=== PATIENT | female | born 1965 | race Caucasian/White ===

== ENCOUNTER → 2019-03-05 13:22 | Outpatient (BNVA) | payer SELFPAY | PROVIDERS: PCP Family Medicine; Visit Provider Nurse Practitioner Family | DX: J40 Bronchitis, not specified as acute or chronic (principal); J01.90 Acute sinusitis, unspecified | CPT/HCPCS: 87804 ==

== ENCOUNTER 2019-08-28 | Outpatient (CLI) | payer SELFPAY | END 2019-08-28 23:00 | disposition home or self-care (01) | LOC: RAD 10-15 08:47 | PROVIDERS: PCP Family Medicine; Visit Provider Nurse Practitioner Family | DX: R10.9 Unspecified abdominal pain (principal) | CPT/HCPCS: 80053; 81000; 81003; 85025 ==

== ENCOUNTER → 2019-08-28 08:57 | Outpatient (BNVA) | payer SELFPAY | PROVIDERS: PCP Family Medicine; Visit Provider Nurse Practitioner Family | DX: R10.9 Unspecified abdominal pain (principal) | CPT/HCPCS: 74018 ==

== ENCOUNTER 2019-08-28 12:17 | Observation (INO) | payer SELFPAY ==
[2019-08-28 12:22] VITALS: BMI 23.6
[2019-08-28 12:25] VITALS: BP 113/66; PULSE 91; RESP 16; TEMP 37.2; O2SAT 96
--- NOTE | 2019-08-28 12:47 | CT_ITS ---
WS: [id number] CT ABDOMEN AND PELVIS WITH CONTRAST HISTORY: RIGHT lower quadrant abdominal pain for 2 days. TECHNIQUE: Imaging performed of the abdomen and pelvis with IV contrast. Single phase imaging of the abdomen. Coronal and sagittal reformats are submitted. All CT scans at [facility] use at least one of these dose optimization techniques: automated exposure control; mA and/or kV adjustment per patient size (includes targeted exams where dose is matched to clinical indication); or iterativ e reconstruction. IV CONTRAST: Omnipaque 300; 95 mL IV. Oral contrast: No DLP: 507.79 mGy.cm COMPARISON: None available. Lower thorax: Lung bases are clear. Heart is normal size. No hiatal hernia. Liver/biliary system: Normal size liver with hepatic steatosis along the falciform ligament. There ar e a few scattered hypodensities in the RIGHT lobe which are too small to characterize. Gallbladder: Normal. No gallstones or wall thickening. No pericholecystic fluid. Pancreas: Normal. Spleen: Normal. Adrenal glands: Normal. Right kidney: Normal size kidney. Hypodense area in the posterior mid renal cortex. 2 small to charac terize but may be a small early cyst. Left kidney: Normal. Aorta: Mild atherosclerosis with no aneurysm. Lymphadenopathy: None. Free fluid: None. GI tract: Significant inflammatory process in the pelvis surrounding the sigmoid and the small bowel loops within the pelvis. There is fat infiltration with edema and haziness. The appendix is visualize d and normal caliber 5 mm. There is some very mild haziness around the appendix which may be continua tion of the acute inflammatory process in the sigmoid. There are just a few diverticula in the sigmoi d. There is marked mucosal edema with narrowing of the lumen through a large portion of the sigmoid. No obstruction at this time. Abdominal wall: Unremarkable abdominal wall. No hernia. Pelvis: Fatty infiltration surrounding the sigmoid. Nondistended urinary bladder. Uterus is present a nd small caliber. Bones: Unremarkable. CT/CT abdomen pelvis w con* [id number] IMPRESSION: 1. Significant acute inflammatory/process surrounding the sigmoid with mucosal thickening and luminal narrowing. Probably related to long segment diverticuli tis or colitis. There are a few diverticula present but the inflammatory proces s which involves the sigmoid has also extended to the adjacent small bowel loop s. 2. No free air or free fluid. 3. Focal areas of hepatic steatosis within the liver.
[2019-08-28 13:09] LABS: Basophils % 0.1 %; Eosinophils % 0.2 %; Hematocrit 41.6 % (37.0-47.0); Hemoglobin 13.6 g/dL (11.5-15.3); Lymphocytes # 1.7 10^3/uL (0.8-4.8); Lymphocytes % 11.7 %; Mean Corpuscular HGB Conc 32.7 g/dL (30.0-36.0); Mean Corpuscular Hemoglobin 34.4 pg (28.0-34.0); Mean Corpuscular Volume 105.3 fL (81-99); Mean Platelet Volume 9.8 fL (7.4-10.4); Monocytes # 0.7 10^3/uL (0.2-0.9); Monocytes % 4.9 %; Neutrophils # 11.8 10^3/uL (1.8-7.7); Neutrophils % 82.8 %; Nucleated Red Blood Cells % 0 %; Platelet Count 190 10^3/cmm (130-400); Red Blood Count 3.95 10^6/uL (4.1-5.3); Red Cell Distribution Width 13.4 % (12.1-15.1); White Blood Count 14.2 10^3/uL (4.0-10.0)
--- NOTE | 2019-08-28 13:13 | W.ED.GENADLT ---
HPI - General Adult General: Chief complaint: General Medical Stated complaint: abnormal labs Time Seen by Provider: 08/28/19 12:38 History of Present Illness: HPI narrative: 83-year-old female comes in complaining of suprapubic pain for the last couple of days been getting progressively worse she was seen in their clinic today and given Toradol she had some hematuria and elevated white count evidently. She is noticed that his abdomen is very tender w any movement makes her very uncomfortable is better if she sits very very still she is not had any blood in the stool she has noticed increased dysuria urgency and frequency she is not noticed any flank pain. She denies any respiratory pain. Onset (ago): day(s) (2) Location: abdomen Radiation: back Severity: severe Quality: aching and sharp Pain Consistency: constant Relieving factors: rest Exacerbating factors: movement Associated symptoms: Reports decreased appetite, nausea and vomiting; Deny chest pain, dyspnea, malaise or rash Treatments prior to arrival: other (Toradol at their clinic) Review of Systems Const: Denies: fever(s), chills, body aches, change in appetite, fatigue or malaise ENMT: Denies: throat pain, ear or mastoid pain, nasal discharge or nasal congestion Card: Denies: chest pain, edema, dyspnea on exertion or orthopnea Resp: Denies: dyspnea, productive cough or non-productive cough GI: Reports: nausea and vomiting : Denies: flank pain, difficulty voiding, dysuria, urinary frequency or urinary urgency Skin/Breast: Denies: rash or pruritus PFS ED PFSH: Medical History Endometriosis, unspecified History of hysteroscopy Mixed hyperlipidemia Nicotine dependence, unspecified, uncomplicated Surgical History No pertinent past surgical history Family History Family/Other CAD (coronary artery disease) Social History Smoking and tobacco status: current every day smoker cigarettes Packs smoked per day: 1 Years cigarettes smoked: 40 Alcohol intake: current Alcohol intake frequency: few times a week Lives independently: Yes Household members: spouse Housing: House Marital status: Current occupational status: employed Current occupation: technical documentation specialist History of recent travel: No Current gender identity: Female Physical Exam Const: COMMON NORMALS: no acute distress GENERAL APPEARANCE: cooperative and comfortable ORIENTATION/CONSCIOUSNESS: Yes awake, Yes oriented to person, Yes oriented to place and Yes oriented to time HENMT: COMMON NORMALS: normocephalic, atraumatic, hearing grossly normal bilaterally, external ears normal, EAC's normal, TM's normal bilaterally, Normal nasal mucous membranes and turbinates present, moist oral mucous membranes and oropharynx normal HEAD & SCALP: normocephalic and atraumatic NOSE: Normal nasal mucous membranes and turbinates present EXTERNAL EAR: Yes external ears normal EXTERNAL AUDITORY CANAL: EAC's normal TYMPANIC MEMBRANE: TM's normal bilaterally Eye: COMMON NORMALS: Equal, round and reactive pupils present, EOMs intact bilaterally, conjunctivae normal and no scleral icterus CONJUNCTIVA: Yes conjunctivae normal PUPIL: Yes Equal, round and reactive pupils present Neck/C-Spine: COMMON NORMALS: full ROM, no lymphadenopathy, supple and no JVD Lymph: LYMPHATIC: no lymphadenopathy noted and no lymphedema noted Resp: COMMON NORMALS: normal respiratory effort, No retractions, No use of accessory muscles and clear to auscultation bilaterally AUSCULTATION: clear to auscultation bilaterally Cardio: COMMON NORMALS: no JVD, regular rate, regular rhythm and No murmurs present (Cardio) RATE: regular rate RHYTHM: regular rhythm GI: COMMON NORMALS: No hepatosplenomegaly present AUSCULTATION: Yes normoactive bowel sounds PALPATION: Yes Guarding due to palpation present (GI) in the RLQ, Yes Rigid due to palpation (Rebound tenderness severe pain with percussion) Location: RLQ and Yes No hepatosplenomegaly present Extremity: COMMON NORMALS: normal to inspection, capillary refill normal, no clubbing, cyanosis or edema, no calf tenderness and no pedal edema Neuro: SENSORIUM/ORIENTATION: Yes oriented to person, Yes oriented to place and Yes oriented to time Skin: COMMON NORMALS: no rashes or lesions noted GENERAL SKIN EXAM: no rashes or lesions noted Course Vital Signs: Vital signs: Vital Signs Temperature 98.7 F 08/29/19 06:15 Pulse Rate 74 08/29/19 06:15 Respiratory Rate 18 08/29/19 06:15 Blood Pressure 130/84 08/29/19 06:15 Pulse Oximetry 99 08/29/19 06:15 MDM - General Adult MDM Narrative: Medical decision making narrative: CT shows extensive diverticulitis extending into the some of the adjacent loops of small bowel there is even a little bit of signs of irritation around the appendix. Interestingly her initial exam pointed more towards appendicitis however on repeat exam her right lower quadrant pain is improved she still has relatively minimal left lower quadrant pain discussed with radiologist. CT findings are very convincing. We will go ahead and admit her start her on Cipro and Flagyl have discussed with hospitalist of also consulted with Dr. Alarcon. At this point it is simply a diverticulitis needing to be treated with IV antibiotics she will need colonoscopy at some point in future Dr. Burnett stated he is available if any surgical issues arrive. Lab Data: Labs: Lab Results 08/28/19 08/28/19 08/28/19 Range/Units 13:00 13:00 13:00 WBC 14.2 H (4.0-10.0) 10^3/ uL RBC 3.95 L (4.1-5.3) 10^6/u L Hgb 13.6 (11.5-15.3) g/dL Hct 41.6 (37.0-47.0) % MCV 105.3 H (81-99) fL MCH 34.4 H (28.0-34.0) pg MCHC 32.7 (30.0-36.0) g/dL RDW 13.4 (12.1-15.1) % Plt Count 190 (130-400) 10^3/c mm MPV 9.8 (7.4-10.4) fL Neut % (Auto) 82.8 % Lymph % (Auto) 11.7 % [place] % (Auto) 4.9 % Eos % (Auto) 0.2 % Baso % (Auto) 0.1 % Neut # (Auto) 11.8 H (1.8-7.7) 10^3/u L Lymph # (Auto) 1.7 (0.8-4.8) 10^3/u L [place] # (Auto) 0.7 (0.2-0.9) 10^3/u L Eos # (Auto) 0.0 (0.0-0.8) 10^3/u L Baso # (Auto) 0.0 (0.0-0.1) 10^3/u L Nucleated RBC % (a uto) 0 % Nucleated RBCs # 0.0 /100WBC Sodium 137 (136-145) mmol/L Potassium 3.8 (3.5-5.1) mmol/L Chloride 101 (98-107) mmol/L Carbon Dioxide 24 (22-29) mmol/L Anion Gap 15.8 (5-19) BUN 13 (6-20) mg/dL Creatinine 0.8 (0.5-0.9) mg/dL GFR Calculation 75.3 L (90-130) mL/min Glucose 121 H (65-115) mg/dL Calculated Osmolal ity 281 L (285-295) mOsm/k g Lactate 1.0 (0.5-2.2) mmol/L Calcium 9.4 (8.5-10.5) mg/dL Total Bilirubin 0.7 (0.15-1.2) mg/dL AST 29 (0-32) U/L ALT 29 (0-33) U/L Alkaline Phosphata se 71 (35-105) IU/L Total Protein 7.5 (6.6-8.7) g/dL Albumin 4.3 (3.5-5.2) g/dL Globulin 3.2 (1.3-4.6) g/dL Lipase 27 (13-60) U/L Discharge Plan Discharge Patient Disposition: Admitted As Inpatient Admit Provider: Dilshad Colindres Referrals: Melisa Desai MD [Primary Care Provider] - Discharge Date/Time: 08/28/19 18:20 Coding Level of Care Code 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
[2019-08-28 13:25] LABS: Alanine Aminotransferase 29 U/L (0-33); Albumin Level 4.3 g/dL (3.5-5.2); Alkaline Phosphatase 71 IU/L (35-105); Anion Gap 15.8 (5-19); Aspartate Amino Transferase 29 U/L (0-32); Blood Urea Nitrogen 13 mg/dL (6-20); Calcium 9.4 mg/dL (8.5-10.5); Carbon Dioxide 24 mmol/L (22-29); Chloride 101 mmol/L (98-107); Globulin 3.2 g/dL (1.3-4.6); Glomerular Filtration Rate 75.3 mL/min (90-130); Glucose 121 mg/dL (65-115); Lipase 27 U/L (13-60); Osmolality Calculated 281 mOsm/kg (285-295); Potassium 3.8 mmol/L (3.5-5.1); Sodium 137 mmol/L (136-145); Total Bilirubin 0.7 mg/dL (0.15-1.2); Total Protein 7.5 g/dL (6.6-8.7)
[2019-08-28 13:36] VITALS: RESP 15; O2SAT 98
[2019-08-28] MEDS: morphine 4 mg/mL SDV 1 mL IVP (13:36)
[2019-08-28] MEDS: sodium chloride 0.9% 1,000 ML 999 ML IV (13:36)
[2019-08-28] MEDS: ondansetron 2 mg/ML SDV 2 mL 4 MG IVP (13:37)
[2019-08-28] MEDS: ciprofloxacin 400 MG/200 ML PREMIX 200 MG IV (14:25)
--- NOTE | 2019-08-28 16:09 | PM.HP ---
Providers/Chief Complaint Primary Care Provider: Melisa Desai MD Chief Complaint: abnormal labs History of Present Illness Yoselyn Jha is a 53 year old female with a past medical history of hyperlipidemia, chronic smoker who presents to [facility] due to complaints of abdominal pain. Patient states that about a month ago she had an episode of abdominal pain throughout her lower abdomen, she thought she might of pulled a muscle working the garden, thought nothing much of it, pain upside in the next few days. But roughly a few days ago, she developed again a severe onset of lower abdominal pain, this time she stated that it was both in the right and left lower quadrant and just a below the umbilicus, but a bit more on the right side. No diarrhea, no bloody or black stools, no fevers, no chills, no sick contacts, no history of food poisoning, no weight loss, no fatigue. Denies nausea. Denies vomiting. Last bowel movement was this morning. Patient states that the pain was sharp, intermittent, and again she thought nothing much of it. However the pain persisted throughout the weekend, becoming much more severe and more persistent so she sought medical attention her primary care physician's office. She had blood work done that showed leukocytosis, and with concerns of right lower quadrant pain she was sent to the ER for a CT scan. Patient CT scan showed no significant inflammation of the appendix, significant diverticulitis. Dr. Nj from the ER did speak to Dr. Burnett, given her radiologic findings and clinical presentation, it was thought that patient symptoms were unlikely related to appendicitis, more related to her diverticulitis or colitis which was extensive involving the sigmoid and small bowel loops. Hospitalist team were called for admission for acute diverticulitis management. Currently in the emergency room, patient states that she is feeling better, pain is primarily in throughout the lower abdomen, both right and left, no dysuria, no hematuria, does have a history of hysteroscopy for endometriosis. 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 Review of Systems Const: Denies: fever(s), chills, fatigue or malaise Eyes: Denies: change in vision or blurry vision ENMT: Denies: nasal congestion Resp: Denies: dyspnea, productive cough, non-productive cough or wheezing GI: Reports: abdominal pain; Denies: nausea, vomiting, hematemesis, diarrhea, constipation, hematochezia or melena : Denies: flank pain, dysuria or urinary frequency Musc: Denies: neck pain or back pain Skin/Breast: Denies: rash Neuro: Denies: headache(s), dizziness or vertigo Psych: Denies: anxiety or depression Endo: Denies: polyuria or polydipsia Medications/Allergies Home Medications Medication Instructions Recorded Confirmed Last Taken Type Crestor 40 mg PO DAILY 08/28/19 08/28/19 08/27/19 History Fish Oil 1 cap PO DAILY 08/28/19 08/28/19 08/27/19 History Allergies Allergy/AdvReac Type Severity Reaction Status Date / Time Penicillins Allergy Unknown Unknown Verified 08/28/19 13:17 PFSH Acute PFSH: Medical History (Updated 08/28/19 @ 16:17 by Dilshad Colindres MD) Endometriosis, unspecified History of hysteroscopy Mixed hyperlipidemia Nicotine dependence, unspecified, uncomplicated Surgical History (Updated 08/28/19 @ 16:15 by Dilshad Colindres MD) No pertinent past surgical history Family History (Updated 03/05/19 @ 13:04 by Josiane William LPN, RT) Family/Other CAD (coronary artery disease) Social History (Updated 03/05/19 @ 13:06 by Josiane William LPN, RT) Smoking and tobacco status: current every day smoker cigarettes Packs smoked per day: 1 Years cigarettes smoked: 40 Alcohol intake: current Alcohol intake frequency: few times a week Lives independently: Yes Household members: spouse Housing: House Marital status: Current occupational status: employed Current occupation: recreation worker History of recent travel: No Current gender identity: Female Vitals/I&O/Wt Last Vital Signs Temp 99.0 F 08/28/19 12:25 Pulse 91 08/28/19 12:25 Resp 15 08/28/19 13:36 BP 113/66 08/28/19 12:25 Pulse Ox 98 08/28/19 13:36 Weight last 48 hrs Weight 62.596 kg Physical Exam Const: COMMON NORMALS: no acute distress and patient oriented x3 GENERAL APPEARANCE: cooperative and comfortable HENMT: COMMON NORMALS: normocephalic HEAD & SCALP: normocephalic Eye: COMMON NORMALS: Equal, round and reactive pupils present and EOMs intact bilaterally GENERAL EYE: appearance normal, both eyes and all related structures PUPIL: Yes Equal, round and reactive pupils present Neck/C-Spine: COMMON NORMALS: full ROM, no lymphadenopathy, no JVD and Thyroid normal THYROID: Thyroid normal Lymph: LYMPHATIC: no lymphadenopathy noted Resp: COMMON NORMALS: normal respiratory effort, No retractions, No use of accessory muscles and clear to auscultation bilaterally AUSCULTATION: clear to auscultation bilaterally Cardio: COMMON NORMALS: no JVD, regular rate, regular rhythm, S1 normal heart sound present, S2 normal heart sound present, No gallops present (Cardio), No clicks present (Cardio) and No murmurs present (Cardio) RATE: regular rate RHYTHM: regular rhythm HEART SOUNDS: S1 normal heart sound present and S2 normal heart sound present GI: INSPECTION: Yes normal to inspection and Yes abdominal distension AUSCULTATION: Yes normoactive bowel sounds PALPATION: Yes Soft to palpation, Yes Tenderness to palpation present (GI) Details: LLQ and RLQ and Yes No hepatosplenomegaly present PERCUSSION: normal to percussion Extremity: COMMON NORMALS: normal to inspection, full ROM and no pedal edema Neuro: COMMON NORMALS: patient oriented x3, CN's II-XII intact bilaterally, moves all extremities and no focal motor deficits Psych: COMMON NORMALS: mental status grossly normal, Normal thought process present and cooperative THOUGHT PROCESS: Normal thought process present Data : 08/28/19 13:00 08/28/19 13:00 A&P Assessment and plan (1) Diverticulitis: -CT scan shows Significant acute inflammatory/process surrounding the sigmoid with mucosal thickening and luminal narrowing. Probably related to long segment diverticulitis or colitis. There are a few diverticula present but the inflammatory process which involves the sigmoid has also extended to the adjacent small bowel loops. -White blood cell count 14.2 -She is 53, no history of colonoscopy, no history of colon cancer, no family history of colon cancer -Currently patient's pain is in the right lower quadrant, below the umbilicus, the left lower quadrant quadrant -Last bowel movement was this morning, no nausea, no vomiting, afebrile Plan: -Admit to the general medical floors -IV hydration -IV pain control -Ciprofloxacin and Flagyl for antibiotic coverage -Serial abdominal exams -Nausea control -Clear liquid diet for now, advance as tolerated -Lovenox for DVT prophylaxis, full code -Needs outpatient follow-up with general surgery for colonoscopy Status: Acute (2) Hepatic steatosis: Status: Acute Attestations Medical Necessity Statement*: Patient cards hospitalization, outpatient with observation, for diverticulitis Coding Level of Care Code Acute Public Affairs Officer for [facility] Diagnoses Diverticulitis K57.92 Hepatic steatosis K76.0
[2019-08-28 18:20] VITALS: BP 132/80; PULSE 80; RESP 14; O2SAT 97
--- NOTE | 2019-08-28 18:38 | PC.NURSE ---
patient arrived on unit.
[2019-08-28 18:42] VITALS: BP 146/72; PULSE 92; RESP 18; TEMP 38.1; O2SAT 97
[2019-08-28] MEDS: enoxaparin 40 mg/0.4 mL Syringe SUBCUT (19:51)
[2019-08-28] MEDS: D5-NS 0.45% + KCL 20 mEq 20 MEQ/1,000 ML BAG 100 MEQ IV (19:51)
[2019-08-28 20:00] VITALS: BP 129/78; PULSE 92; RESP 18; TEMP 37.1; O2SAT 100
[2019-08-28] MEDS: metroNIDAZOLE IV 500 MG/100 ML PREMIX 100 MG IV (21:50)
[2019-08-29] VITALS (8 sets, daily range): BP systolic 113–135; BP diastolic 67–84; PULSE 72–88; RESP 17–18; TEMP 36.8–37.5; O2SAT 95–99
[2019-08-29] MEDS: morphine 4 mg/mL SDV 1 mL 2 MG IVP (01:11)
[2019-08-29] MEDS: ciprofloxacin 400 MG/200 ML PREMIX 200 MG IV ×2 (01:12→13:45)
[2019-08-29 05:22] LABS: Basophils % 0.1 %; Eosinophils # 0.1 10^3/uL (0.0-0.8); Eosinophils % 0.4 %; Hematocrit 37.6 % (37.0-47.0); Hemoglobin 12.4 g/dL (11.5-15.3); Lymphocytes # 1.8 10^3/uL (0.8-4.8); Lymphocytes % 14.3 %; Mean Corpuscular Hemoglobin 34.8 pg (28.0-34.0); Mean Corpuscular Volume 105.6 fL (81-99); Mean Platelet Volume 10.5 fL (7.4-10.4); Monocytes # 0.6 10^3/uL (0.2-0.9); Monocytes % 4.7 %; Neutrophils % 80.2 %; Nucleated Red Blood Cells % 0 %; Platelet Count 174 10^3/cmm (130-400); Red Blood Count 3.56 10^6/uL (4.1-5.3); Red Cell Distribution Width 13.2 % (12.1-15.1); White Blood Count 12.5 10^3/uL (4.0-10.0)
[2019-08-29] MEDS: metroNIDAZOLE IV 500 MG/100 ML PREMIX 100 MG IV ×2 (05:46→15:16)
[2019-08-29 05:48] LABS: Alanine Aminotransferase 23 U/L (0-33); Albumin Level 3.9 g/dL (3.5-5.2); Alkaline Phosphatase 66 IU/L (35-105); Anion Gap 11.9 (5-19); Aspartate Amino Transferase 22 U/L (0-32); Blood Urea Nitrogen 6 mg/dL (6-20); Carbon Dioxide 23 mmol/L (22-29); Chloride 105 mmol/L (98-107); Creatinine Clr Calc Pharmacy 100.1807; Globulin 2.9 g/dL (1.3-4.6); Glucose 115 mg/dL (65-115); Osmolality Calculated 279 mOsm/kg (285-295); Potassium 3.9 mmol/L (3.5-5.1); Sodium 136 mmol/L (136-145); Total Bilirubin 0.5 mg/dL (0.15-1.2); Total Protein 6.8 g/dL (6.6-8.7)
[2019-08-29 06:06] LABS: C Reactive Protein 154.5 mg/L (0.0-4.9); Phosphorus 2.8 mg/dL (2.5-4.5)
--- NOTE | 2019-08-29 09:52 | PC.CHAP ---
Pastoral Care Encounter/Spiritual Assessment Type of Contact [] Declined flexographic press plate setter visit [] Patient/Family/Request visit [] Outpatient visit [] Follow-up visit [] Physician referral [] Code/Alert [x] Routine visit [] Staff referral [] Actively dying [] Patient sleeping [] Family support [] [] Out of room [] Palliative care [] [] Receiving care in room [] Pre-surgical visit [] Trauma [] Long length of stay [] ICU visit [] Other: Relational/Emotional Strength [] Patient feels connected with others/family/visitors/staff [] Distress [] Loneliness/isolation [] Abandonment Spirituality of Patient [] Person of Agustina [] Attends Mu-Ism of their [place]ustina [] Believes in Prayer [] Reads Bible or Sikh materials [] There are Spiritual issues to be addressed Car Sealer Interventions [x] Prayer [x] Active listening [x] Non-anxious presence [x] Spiritual/emotional support [] Crisis/trauma care [] Spiritual counseling [] Bereavement support [] Provided bereavement packet [] Provided Bible/devotional materials [] Provided toy/stuffed animal, coloring book to patient or family member [] Provided Communion [] Anointing/Independence [] Salvation [x] Completed spiritual assessment [] Other: Impact on Illness or Injury [] Angry [] Fearful [] Anxious [] Often cries [] Exhaustion [] Unable to work [] Unable to attend congregational [] Unable to walk/stand [] Unable to read [] Unable to drive [] Unable to eat/drink [] Unable to sleep [] Unable to be with family [] Patient intubated [] Other: Summary Patient resting well. Time spent with patient 5 min
--- NOTE | 2019-08-29 11:59 | P.DS_ITS ---
Discharge Providers Date of Admission: 08/28/19 14:08 Date of Discharge: August 29, 2019 Attending Provider at Admission: Dilshad Colindres MD Attending Provider at Discharge: Dilshad Colindres MD Primary Care Provider: Melisa Desai MD Diagnoses at Discharge Discharge Diagnosis (1) Diverticulitis: Status: Acute (2) Hepatic steatosis: Status: Acute Reason for Visit Reason for Visit: abnormal labs Hospital Course Discharge Summary: Yoselyn Jha is a 53 year old female with a past medical history of hyperlipidemia, chronic smoker who presents to [facility] due to complaints of abdominal pain. Patient was admitted for acute diverticulitis, white blood cell count 14.2, CT scan showed Significant acute inflammatory/process surrounding the sigmoid with mucosal thickening and luminal narrowing, Probably related to long segment diverticulitis or colitis, There are a few diverticula present but the inflammatory process which involves the sigmoid has also extended to the adjacent small bowel loops. Patient was admitted to general medical floors, for acute diverticulitis, received IV hydration, IV pain control, Cipro and Flagyl for antibiotic coverage, serial abdominal exams, nausea control, kept n.p.o., monitor for the next 24 hours. Patient did well, symptomology improved, transitioned to a GI soft diet, tolerated it well, minimally symptomatic. Discharged on 14 remaining days of Cipro and Flagyl, with close follow-up with primary care in 1 week. Patient is to follow-up with general surgery in 1 month for consideration of colonoscopy. Patient was advised to continue GI soft diet for the next 2 to 3 weeks, and advance to high-fiber diet after words. Patient was advised if she were to have worsening abdominal pain, nausea vomiting fevers come back to emergency room. Physical Exam Const: COMMON NORMALS: no acute distress and patient oriented x3 HENMT: COMMON NORMALS: normocephalic HEAD & SCALP: normocephalic Neck/C-Spine: COMMON NORMALS: no JVD Resp: COMMON NORMALS: normal respiratory effort, No retractions, No use of accessory muscles and clear to auscultation bilaterally AUSCULTATION: clear to auscultation bilaterally Cardio: COMMON NORMALS: no JVD, regular rate, regular rhythm, S1 normal heart sound present and S2 normal heart sound present RATE: regular rate RHYTHM: regular rhythm HEART SOUNDS: S1 normal heart sound present and S2 normal heart sound present GI: COMMON NORMALS: Normal to inspection, nondistended, normoactive bowel sounds present, Soft to palpation, non-tender, No hepatosplenomegaly present, no masses and no bruits PALPATION: Yes Soft to palpation and Yes No hepatosplenomegaly present Extremity: COMMON NORMALS: capillary refill normal, no clubbing, cyanosis or edema, no calf tenderness and no pedal edema Neuro: COMMON NORMALS: patient oriented x3 Psych: COMMON NORMALS: mental status grossly normal Discharge Data Data Completed and Pending: Completed Studies During Hospitalization Category Date Time Status CT abdomen pelvis w con* [id number] Stat Cat Scan 08/28/19 12:47 Completed Pending at discharge Category Date Time Status C Reactive Protei n AM LABS Lab 08/30/19 04:00 Ordered C Reactive Protei n AM LABS Lab 08/31/19 04:00 Ordered Magnesium AM LABS Lab 08/30/19 04:00 Ordered Magnesium AM LABS Lab 08/31/19 04:00 Ordered Phosphorus AM LAB S Lab 08/30/19 04:00 Ordered Phosphorus AM LAB S Lab 08/31/19 04:00 Ordered Labs from last 24 hours 08/29/19 08/29/19 08/29/19 04:10 04:10 04:10 WBC 12.5 H RBC 3.56 L Hgb 12.4 Hct 37.6 MCV 105.6 H MCH 34.8 H MCHC 33.0 RDW 13.2 Plt Count 174 MPV 10.5 H Neut % (Auto) 80.2 Lymph % (Auto) 14.3 Grainger % (Auto) 4.7 Eos % (Auto) 0.4 Baso % (Auto) 0.1 Neut # (Auto) 10.0 H Lymph # (Auto) 1.8 Grainger # (Auto) 0.6 Eos # (Auto) 0.1 Baso # (Auto) 0.0 Nucleated RBC % (a uto) 0 Nucleated RBCs # 0.0 Sodium 136 Potassium 3.9 Chloride 105 Carbon Dioxide 23 Anion Gap 11.9 BUN 6 Creatinine 0.6 GFR Calculation 105.0 Glucose 115 Calculated Osmolal ity 279 L Lactate Calcium 9.0 Phosphorus 2.8 Magnesium 2.0 Total Bilirubin 0.5 AST 22 ALT 23 Alkaline Phosphata se 66 C-Reactive Protein 154.5 H Total Protein 6.8 Albumin 3.9 Globulin 2.9 Lipase 08/28/19 08/28/19 08/28/19 13:00 13:00 13:00 WBC 14.2 H RBC 3.95 L Hgb 13.6 Hct 41.6 MCV 105.3 H MCH 34.4 H MCHC 32.7 RDW 13.4 Plt Count 190 MPV 9.8 Neut % (Auto) 82.8 Lymph % (Auto) 11.7 Grainger % (Auto) 4.9 Eos % (Auto) 0.2 Baso % (Auto) 0.1 Neut # (Auto) 11.8 H Lymph # (Auto) 1.7 Grainger # (Auto) 0.7 Eos # (Auto) 0.0 Baso # (Auto) 0.0 Nucleated RBC % (a uto) 0 Nucleated RBCs # 0.0 Sodium 137 Potassium 3.8 Chloride 101 Carbon Dioxide 24 Anion Gap 15.8 BUN 13 Creatinine 0.8 GFR Calculation 75.3 L Glucose 121 H Calculated Osmolal ity 281 L Lactate 1.0 Calcium 9.4 Phosphorus Magnesium Total Bilirubin 0.7 AST 29 ALT 29 Alkaline Phosphata se 71 C-Reactive Protein Total Protein 7.5 Albumin 4.3 Globulin 3.2 Lipase 27 Vitals: Last Vital Signs Temp 98.8 F 08/29/19 11:11 Pulse 72 08/29/19 11:11 Resp 18 08/29/19 11:11 BP 113/76 08/29/19 11:11 Pulse Ox 97 08/29/19 11:11 Discharge Plan Discharge Patient Disposition: Home, Self-Care Condition: Stable Prescriptions: New Cipro 500 mg tablet 500 mg PO BID 14 Days Qty: 28 RF: 0 Flagyl 500 mg tablet 500 mg PO Q8H 14 Days Qty: 42 RF: 0 Continued Fish Oil 1 cap PO DAILY RF: 0 Crestor 40 mg tablet 40 mg PO DAILY RF: 0 Discharge Orders: Discharge Order (Routine); Ordered 08/29/19 Ordered By: Dilshad Colindres Referrals: Krishna Burnett MD [Physician] - 10/10/19 1:30 pm Melisa Desai MD [Primary Care Provider] - 09/03/19 9:00 am (WITH IVONNE LAWSON) Discharge Diet: GI Soft Discharge Activity: Resume usual activity Patient Instructions: Ciprofloxacin (By mouth), Metronidazole (By mouth), Colonoscopy (GEN), Diverticulitis (GEN), Soft Diet (DC), Diverticulosis Diet (GEN) Activity Restrictions/Additional Instructions: -Slowly advance diet, GI soft diet -Follow-up with primary care in 1 week -Follow-up with general surgeon in 1 month for consideration of colonoscopy Discharge Date/Time: 08/29/19 16:36 Discharge Attestations Time Spent in Discharge Care*: less than 30 min Quality Metrics Clinical Quality Measures During this hospital stay, did patient experience: None Coding Level of Care Code 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
== END 2019-08-29 16:36 | disposition home or self-care (01) ==
LOC: ER 18:00 → MEDSURG 08-29 11:59
PROVIDERS: Family Medicine; Admitting Provider Family Medicine; PCP Family Medicine; Visit Provider Family Medicine
DX: K57.92 Diverticulitis of intestine, part unspecified, without perforation or abscess without bleeding (principal); K76.0 Fatty (change of) liver, not elsewhere classified; F17.210 Nicotine dependence, cigarettes, uncomplicated; E78.2 Mixed hyperlipidemia; Z82.49 Family history of ischemic heart disease and other diseases of the circulatory system
CPT/HCPCS: 12345; 36415; 74177; 80053; 83605; 83690; 83735; 84100; 85025; 86140; 96365; 96366; 96368; 96372; 96375; 99282; 99285; G0378; J0744; J1650; J2270; J2405; J7030; Q9967; S0030

== ENCOUNTER 2019-10-17 10:00 | Day surgery (SDC) | payer SELFPAY ==
[2019-10-15 10:01] VITALS: BMI 22.1
[2019-10-17 10:24] VITALS: BP 116/98; PULSE 66; RESP 18; TEMP 36.2; O2SAT 99
[2019-10-17] MEDS: sodium chloride 0.9% 1,000 ML 30 ML IV (10:42)
--- NOTE | 2019-10-17 10:49 | P.ANESASSM_ITS ---
Pre-Anesthetic Assessment Pre-Anesthetic Assessment: Height/Weight: Height 1.63 m Weight 58.513 kg Temp Pulse Resp BP Pulse Ox 97.1 F L 66 18 116/98 99 10/17/19 10:24 10/17/19 10:24 10/17/19 10:24 10/17/19 10:24 10/17/19 10:24 Preop Diagnosis: History of diverticulitis and abdominal pain Proposed Procedure: Operation Date: 10/17/19 11:30 Proposed Procedures p Colonoscopy 67490 K57.92(Not Applicable) - Krishna Burnett MD Was Beta Maria Del Carmen taken within 24 hours: N/A Last intake: Intake Last Liquid Date 10/16/19 Last Liquid Time 21:00 Last Solid Date 10/15/19 Last Solid Time 18:00 Social: Social History: Alcohol (social) and Tobacco Exam: Pre-Anes Outpt Exam: alert, oriented x 3, clear to auscultation bilaterally and regular rate & rhythm Airway: Submandibular: WNL Cervical ROM: WNL MP: 2 Pulmonary: Pulmonary: COPD CV/HEM: CV/HEM: None reported : : None reported Hepatic: Hepatic: None reported GI: GI: None reported Musc/skel: Musc/skel: None reported Neuropsych: Neuropsych: None reported Anesthetic Plan: ASA status: 2 Anesthesia: MAC Meds/Allergies Current Medications: Current Medications Generic Name Dose Route Start Last Admin Trade Name Freq PRN Reason Stop Dose Admin Sodium Chloride 1,000 mls @ 30 ml s/hr 10/17/19 10:30 10/17/19 10:42 Sodium Chloride 0.9% IV 30 mls/hr .Q24H RALPH Administration PFSH Anesthesia PFSH: Medical History (Updated 10/11/19 @ 17:14 by Krishna Burnett MD) Endometriosis, unspecified History of hysteroscopy Mixed hyperlipidemia Nicotine dependence, unspecified, uncomplicated Surgical History No pertinent past surgical history Family History Family/Other CAD (coronary artery disease) Brother Cancer tongue Denies family history of Anesthesia complication Bleeding disorder Social History Smoking and tobacco status: current every day smoker cigarettes Packs smoked per day: 1 Years cigarettes smoked: 40 Alcohol intake: current Alcohol intake frequency: few times a week Household members: spouse Housing: House Marital status: Current occupational status: employed Current occupation: senior lead software engineer History of recent travel: No Current gender identity: Female Data Anesthesia Cardiac Studies: No Data to Display
--- NOTE | 2019-10-17 11:51 | W.PM.OPSUD ---
Surgery/Procedure H&P Update DATE OF PROCEDURE: October 17, 2019 DATE H&P PERFORMED: 10/10/19 H&P UPDATE INFORMATION: I have reviewed H&P completed within last 30 days, I have examined patient prior to procedure and No changes to prior documentation PREOP DIAGNOSIS: History of diverticulitis and abdominal pain PRIMARY INDICATION FOR PROCEDURE: THE SAME PLANNED PROCEDURE: Operation Date: 10/17/19 11:30 Proposed Procedures p Colonoscopy 46400 K57.92(Not Applicable) - Krishna Burnett MD
[2019-10-17 12:14] VITALS: BP 106/47; PULSE 69; RESP 18; TEMP 36.3; O2SAT 99
--- NOTE | 2019-10-17 12:20 | ANE.PACU2 ---
Inpatient post-anesthesia follow up: Airway intact: Yes Vital signs: Temperature 97.3 F Pulse Rate 69 Respiratory Rate 18 Blood Pressure 106/47 Pulse Oximetry 99 Oxygen Delivery Me thod Nasal Cannula Oxygen Flow Rate 3.0 Fraction of Inspir ed Oxygen Hydration adequate: Yes Nausea and vomiting: No Mental status: Baseline
[2019-10-17 12:29] VITALS: BP 123/78; PULSE 67; RESP 18; O2SAT 99
== END 2019-10-17 12:38 | disposition home or self-care (01) ==
PROVIDERS: PCP Family Medicine; Visit Provider Surgery
PROC: 0DJD8ZZ Inspection of Lower Intestinal Tract, Via Natural or Artificial Opening Endoscopic (ICD-10-PCS; CPT 45378; principal; 2019-10-17 11:30)
DX: K57.30 Diverticulosis of large intestine without perforation or abscess without bleeding (principal); J44.9 Chronic obstructive pulmonary disease, unspecified; F17.210 Nicotine dependence, cigarettes, uncomplicated; E78.2 Mixed hyperlipidemia
CPT/HCPCS: 12345; 45378; J2704; J7030

== ENCOUNTER → 2020-06-11 11:40 | Outpatient (BNVA) | payer OTHER, SELFPAY | PROVIDERS: PCP Family Medicine; Visit Provider Nurse Practitioner Family | DX: R53.83 Other fatigue (principal); E78.2 Mixed hyperlipidemia; R53.1 Weakness | CPT/HCPCS: 80053; 80061; 82306; 82607; 83036; 83735; 84439; 84443; 84481; 85025 ==

== ENCOUNTER → 2023-02-01 08:22 | Outpatient (BNVA) | payer SELFPAY | PROVIDERS: PCP Family Medicine; Visit Provider Dermatology | DX: Z01.89 Encounter for other specified special examinations (principal) ==

== ENCOUNTER 2023-03-01 13:46 | Outpatient (CLI) | payer OTHER, SELFPAY ==
--- NOTE | 2023-03-01 14:30 | MM_ITS ---
WS: [id number] BILATERAL 3D TOMOSYNTHESIS DIGITAL SCREENING MAMMOGRAPHY WITH CAD CLINICAL INFORMATION: SCREENING HISTORY: Screening mammogram. No current complaints. COMPARISON: 2010 TECHNIQUE: Bilateral CC and MLO views. FINDINGS: The breasts are composed of heterogeneous fibroglandular density tissue, which can limit the detectio n of small underlying mass lesions. No suspicious mass, asymmetry, calcifications, or architectural d istortion. No evidence of malignancy. Punctate and lucent centered calcifications. IMPRESSION: MM/[place] [id number] BI-RADS: 2-Benign FOLLOW UP: 1 Year Follow-up Recommend return to annual screening mammography.
== END 2023-03-01 13:47 | disposition home or self-care (01) ==
LOC: MOBLMAM 13:58
PROVIDERS: PCP Family Medicine; Visit Provider Family Medicine
DX: Z12.31 Encounter for screening mammogram for malignant neoplasm of breast (principal)
CPT/HCPCS: 77063; 77067

== ENCOUNTER 2024-05-01 09:38 | Outpatient (CLI) | payer OTHER, SELFPAY ==
--- NOTE | 2024-05-01 09:40 | MM_ITS ---
WS: [id number] BILATERAL 3D TOMOSYNTHESIS DIGITAL SCREENING MAMMOGRAPHY WITH CAD CLINICAL INFORMATION: SCREENING HISTORY: Screening mammogram. No current complaints. COMPARISON: 2023 TECHNIQUE: Bilateral CC and MLO views. FINDINGS: The breasts are composed of heterogeneous fibroglandular density tissue, which can limit the detection of small underlying mass lesions. No suspicious mass, asymmetry, calcifications, or architectural distortion. No evidence of malignancy. A few incidental punctate calcifications. MM/MM [facility] tomosynthesis [id number] IMPRESSION: DENSITY: The breasts are heterogeneously dense, which may obscure small masses. BI-RADS: 2 - Benign FOLLOW UP: 1 Year Follow-up Recommend return to annual screening mammography.
== END 2024-05-01 09:39 | disposition home or self-care (01) ==
PROVIDERS: PCP Family Medicine; Visit Provider Family Medicine
DX: Z12.31 Encounter for screening mammogram for malignant neoplasm of breast (principal); R92.333 Mammographic heterogeneous density, bilateral breasts; R92.1 Mammographic calcification found on diagnostic imaging of breast
CPT/HCPCS: 77063; 77067

== ENCOUNTER → 2024-06-04 09:24 | Outpatient (BNVA) | payer OTHER, SELFPAY | PROVIDERS: PCP Nurse Practitioner Family; Visit Provider Nurse Practitioner Family | DX: E78.2 Mixed hyperlipidemia (principal); M79.673 Pain in unspecified foot; G89.29 Other chronic pain; K76.0 Fatty (change of) liver, not elsewhere classified; K57.92 Diverticulitis of intestine, part unspecified, without perforation or abscess without bleeding; R25.1 Tremor, unspecified | CPT/HCPCS: 80053; 80061; 84443; 85025 ==

== ENCOUNTER → 2024-09-10 12:02 | Outpatient (BNVA) | payer OTHER, SELFPAY | PROVIDERS: PCP Nurse Practitioner Family; Visit Provider Nurse Practitioner Family | DX: E78.2 Mixed hyperlipidemia (principal); R74.8 Abnormal levels of other serum enzymes | CPT/HCPCS: 80053; 80061; 85025 ==